=== PATIENT | male | born 1960 | race Hispanic/Latino ===

== ENCOUNTER 2018-01-19 22:31 | Emergency (ER) | payer BC, OTHER ==
[2018-01-19] MEDS ORDERED: L.E.T. GEL 4%/0.5%/0.18% 3ML 3 ML/SYR SYG TP ONE (22:54)
[2018-01-19] MEDS ORDERED: DEXTROSE 50%-WATER 50 ML DISP.SYRIN IV ONE (22:54)
[2018-01-19] MEDS ORDERED: HYDROCODONE/ACETAMINOPHEN 10/325 MG TAB ONE (22:55)
[2018-01-20] MEDS ORDERED: FLUCONAZOLE 100 MG TAB ONE (00:40)
== END 2018-01-20 00:52 | disposition home or self-care (01) ==
LOC: EDH 22:31
DX: N47.2 Paraphimosis (principal); N48.1 Balanitis; E11.9 Type 2 diabetes mellitus without complications; I10 Essential (primary) hypertension; Z90.49 Acquired absence of other specified parts of digestive tract; Z91.041 Radiographic dye allergy status; Z79.4 Long term (current) use of insulin
CPT/HCPCS: 54450; 99284; J7070

== ENCOUNTER → 2019-04-18 | Outpatient (CLI) | payer BC | END | disposition home or self-care (01) | LOC: RAH 11:20 | PROVIDERS: ATTEND Internal Medicine | DX: M47.816 Spondylosis without myelopathy or radiculopathy, lumbar region (principal) | CPT/HCPCS: 72100 ==

== ENCOUNTER → 2019-06-05 | Outpatient (CLI) | payer BC ==
[2019-06-05 16:24] LABS: CREATININE 1.2 mg/dL (0.5-1.5)
== END | disposition home or self-care (01) ==
LOC: LAB 15:54
PROVIDERS: ATTEND Internal Medicine
DX: K86.89 Other specified diseases of pancreas (principal); I10 Essential (primary) hypertension; E11.9 Type 2 diabetes mellitus without complications; Z90.49 Acquired absence of other specified parts of digestive tract; Z91.041 Radiographic dye allergy status
CPT/HCPCS: 36415; 82565; 84520

== ENCOUNTER → 2019-06-06 | Outpatient (CLI) | payer BC ==
[~2019-06-06] MED LIST: DiphenhydrAMINE HCL 50 MG/ML VIAL ONE; IOHEXOL 350 MG/ML 100ML INFUS..BTL IV ONE; IOHEXOL-350 50ML VIAL IV ONE
--- NOTE | 2019-06-06 13:33 | NUR ---
PT REPORTED ALLERGY TO CONTRAST PRIOR TO CT OF ABDOMEN WITH AND WITHOUT. DR TURCIOS WAS MADE AWARE THAT PT HAS ALLERGY AND PTS PCP DID NOT ORDER ANY PROFILACTIC MEDS TO COVER POSSIBLE ALLERGIC REACTION. RADIOLOGIST DID NOT PROVIDE ORDERS FOR PRE MED AND ADVISED MANAGER OF DIGITAL TO PROCEED WITH ORDERED EXAMS. POST EXAM PT DEVELOPED MULTIPLE HIVES TO FACE NECK AND BACK. PT REPORTED THE HIVES WERE ONLY SLIGHTLY ITCHY AND DID NOT GIVE HIM MUCH DISCOMFORT AT ALL. PT DID NOT HAVE ANY DIFFICULTY BREATHING AND DID NOT FEEL ANY DISCOMFORT IN HIS MOUTH THROAT OR NECK. THIS INFORMATION WAS GIVEN TO , HE ORDERED 25 MG BENADRYL IV X 1 DOSE THAT WAS ADMINISTERED AT 0958. THE PT WAS OBSERVED APPROXIMATELY 35 MORE MIN FOR S/S OF FURTHER REACTION TO THE IV CONTRAST. THE HIVES SUBSIDED AND THERE WAS NO FURTHER ADVERSE REACTION NOTED. THE PATIENT WAS ALLOWED TO GO HOME, WITH HIS DAUGHTER DRIVING HIM, @ 1035.
== END | disposition home or self-care (01) ==
LOC: RAH 10:00
PROVIDERS: ATTEND Internal Medicine
DX: K76.0 Fatty (change of) liver, not elsewhere classified (principal); N20.0 Calculus of kidney
CPT/HCPCS: 74170; J1200; Q9967 ×2

== ENCOUNTER 2019-06-24 07:13 | Day surgery (SDC) | payer BC ==
[~2019-06-24] VITALS: Ht 175.3 cm; Wt 95.3 kg
[~2019-06-24 07:13] MED LIST changes: -DiphenhydrAMINE HCL 50 MG/ML VIAL ONE; -IOHEXOL 350 MG/ML 100ML INFUS..BTL IV ONE; -IOHEXOL-350 50ML VIAL IV ONE; +SODIUM CHLORIDE 0.9% 1000ML 1,000 ML IV ONE
[2019-06-24 08:32] LABS: EOSINOPHILS % (AUTO) 3.1 % (0.0-8.0); HEMATOCRIT 45.6 % (42-54); LYMPHOCYTES % (AUTO) 24.1 % (21.0-51.0); MEAN CORPUSCULAR HEMOGLOBIN 27.3 pg (27.0-33.0); MEAN CORPUSCULAR HGB CONC 33.8 g/dL (32.0-36.0); MEAN CORPUSCULAR VOLUME 80.9 fL (79-99); MONOCYTES % (AUTO) 6.8 % (3.0-13.0); PLATELET COUNT (AUTO) 247 K/uL (130-400); RED BLOOD CELL COUNT(AUTO) 5.63 MIL/uL (4.50-6.20); RED CELL DISTRIBUTION WIDTH 13.9 % (11.0-15.5); WHITE BLOOD COUNT (AUTO) 9.8 K/uL (4.8-10.8)
[2019-06-24 08:40] VITALS: BP 154/82
[2019-06-24 08:40] LABS: INR 0.99 (0.85-1.15); PROTHROMBIN TIME 10.4 SEC (9.6-11.6)
[2019-06-24] MEDS ORDERED: OMEG100014 PO (08:55)
[2019-06-24] MEDS ORDERED: METO100T14 PO (08:55)
[2019-06-24] MEDS ORDERED: INSU200I SQ (08:55)
[2019-06-24] MEDS ORDERED: INSLAN SQ (08:55)
[2019-06-24] MEDS ORDERED: PROPOFOL 10 MG/ML 20ML VIAL IV ONE ×3 (08:55→09:11)
[2019-06-24] MEDS ORDERED: METF500T20 PO (08:55)
[2019-06-24] MEDS ORDERED: LISI40TA4 PO (08:55)
[2019-06-24] MEDS ORDERED: ASPI-555 PO (08:55)
[2019-06-24] MEDS ORDERED: ATOR40TA71 PO (08:55)
[2019-06-24 09:21] VITALS: BP 145/90
[2019-06-24 09:26] VITALS: BP 138/88
[2019-06-24 09:31] VITALS: BP 142/82
[2019-06-24 09:36] VITALS: BP 134/84
== END 2019-06-24 09:56 | disposition home or self-care (01) ==
LOC: DAH 07:13 → ENDO 07:13
PROVIDERS: ATTEND Internal Medicine
DX: R94.5 Abnormal results of liver function studies (principal); K29.50 Unspecified chronic gastritis without bleeding; K86.89 Other specified diseases of pancreas; R93.2 Abnormal findings on diagnostic imaging of liver and biliary tract; R63.4 Abnormal weight loss; E78.5 Hyperlipidemia, unspecified; I10 Essential (primary) hypertension; E11.9 Type 2 diabetes mellitus without complications; K76.0 Fatty (change of) liver, not elsewhere classified; Z86.73 Personal history of transient ischemic attack (TIA), and cerebral infarction without residual deficits; Z86.010 Personal history of colon polyps; Z79.84 Long term (current) use of oral hypoglycemic drugs; Z79.82 Long term (current) use of aspirin; Z79.899 Other long term (current) drug therapy; Z90.49 Acquired absence of other specified parts of digestive tract; Z80.0 Family history of malignant neoplasm of digestive organs
CPT/HCPCS: 36415; 43238; 43239; 82948 ×2; 85025; 85610; A4215 ×2; A4221; A4222; A4223; A4606; A4620; A4663; J2704 ×3; J7030

== ENCOUNTER → 2019-09-13 | Outpatient (CLI) | payer BC ==
[~2019-09-13] MED LIST changes: +ASPI-555 PO; +ATOR40TA71 PO; +INSLAN SQ; +INSU200I SQ; +LISI40TA4 PO; +METF500T20 PO; +METO100T14 PO; +OMEG100014 PO; -SODIUM CHLORIDE 0.9% 1000ML 1,000 ML IV ONE
== END | disposition home or self-care (01) ==
LOC: SHCH 08:46
PROVIDERS: ATTEND Internal Medicine Cardiovascular Disease
DX: I10 Essential (primary) hypertension (principal)
CPT/HCPCS: 93306; 93356

== ENCOUNTER 2020-04-20 06:25 | Day surgery (SDC) | payer BC ==
[2020-04-20] VITALS (7 sets, daily range): BP systolic 74–134; BP diastolic 39–80
[~2020-04-20] VITALS: Ht 175.3 cm; Wt 95.3 kg
[~2020-04-20 06:25] MED LIST changes: +AMLO5TAB9 PO; -ASPI-555 PO; +ASPI-556 PO; +METF-910 PO; -METF500T20 PO; -OMEG100014 PO; +SODIUM CHLORIDE 0.9% 1000ML 1,000 ML IV ONE; +VASEPA PO
[2020-04-20] MEDS ORDERED: PROPOFOL 10 MG/ML 20ML VIAL IV ONE ×2 (07:58→07:59)
[2020-04-20] MEDS ORDERED: MIDAZOLAM HCL 1 MG/ML 2ML VIAL ONE (07:58)
[2020-04-20] MEDS ORDERED: LEVOFLOXACIN 500 MG/D5W 100 ML 100 ML ONE (07:58)
== END 2020-04-20 09:15 | disposition home or self-care (01) ==
LOC: ENDO 06:25 → DAH 06:25 → ENDO 09:15
PROVIDERS: ATTEND Internal Medicine
DX: Z09 Encounter for follow-up examination after completed treatment for conditions other than malignant neoplasm (principal); K86.2 Cyst of pancreas; Z86.010 Personal history of colon polyps; K57.90 Diverticulosis of intestine, part unspecified, without perforation or abscess without bleeding; K29.50 Unspecified chronic gastritis without bleeding; E78.5 Hyperlipidemia, unspecified; I10 Essential (primary) hypertension; E11.9 Type 2 diabetes mellitus without complications; Z86.73 Personal history of transient ischemic attack (TIA), and cerebral infarction without residual deficits; Z90.49 Acquired absence of other specified parts of digestive tract; Z79.84 Long term (current) use of oral hypoglycemic drugs; Z79.82 Long term (current) use of aspirin; Z79.899 Other long term (current) drug therapy
CPT/HCPCS: 43238; 45378; 82948 ×2; 93005; A4215 ×2; A4221; A4222; A4223; A4606; A4620; A4657; A4663; C9803; J1956; J2250; J2704 ×2; J7030; U0003; G0105

== ENCOUNTER 2021-12-03 12:31 | Inpatient (IN) | payer BC, OTHER ==
[~2021-12-03] VITALS: Ht 175.3 cm; Wt 85.3 kg
[~2021-12-03 12:31] MED LIST changes: +AMLO-257 PO; -AMLO5TAB9 PO; -LISI40TA4 PO; +LISI40TA9 PO; -SODIUM CHLORIDE 0.9% 1000ML 1,000 ML IV ONE
[2021-12-03] MEDS ORDERED: FUROSEMIDE 40MG VIAL ONE (12:51)
[2021-12-03] MEDS ORDERED: NITROGLYCERIN 1GM OINT 1 INCH/1GM TD ONE ×2 (12:51→13:00)
[2021-12-03 12:55] LABS: BASOPHILS % (AUTO) 0.3 % (0.0-5.0); EOSINOPHILS % (AUTO) 2.1 % (0.0-8.0); HEMATOCRIT 45.6 % (42-54); LYMPHOCYTES % (AUTO) 14.5 % (21.0-51.0); MEAN CORPUSCULAR HEMOGLOBIN 25.5 pg (27.0-33.0); MEAN CORPUSCULAR HGB CONC 31.8 g/dL (32.0-36.0); MEAN CORPUSCULAR VOLUME 80.1 fL (79-99); NEUTROPHILS % (AUTO) 74.7 % (40.0-77.0); PLATELET COUNT (AUTO) 349 K/uL (130-400); RED BLOOD CELL COUNT(AUTO) 5.69 MIL/uL (4.50-6.20); RED CELL DISTRIBUTION WIDTH 12.3 % (11.0-15.5); WHITE BLOOD COUNT (AUTO) 10.3 K/uL (4.8-10.8)
[2021-12-03 13:00] LABS: CREATININE 1.1 mg/dL (0.5-1.5); POTASSIUM 4.5 mmol/L (3.5-5.1)
[2021-12-03] MEDS ORDERED: FUROSEMIDE 40MG VIAL IV ONE (13:00)
[2021-12-03 13:05] LABS: ALBUMIN 2.6 g/dL (3.5-5.0); BILIRUBIN,TOTAL 1.6 mg/dL (0.2-1.0); MAGNESIUM 1.7 mg/dL (1.80-2.40); TOTAL PROTEIN, SERUM 7.4 g/dL (6.0-8.3)
[2021-12-03 13:24] LABS: INFLUENZA TYPE A NEGATIVE FOR TYPE A (NEG); INFLUENZA TYPE B NEGATIVE FOR TYPE B (NEG)
[2021-12-03] MEDS ORDERED: CEFTRIAXONE 1G VIAL IVP ONE (13:30)
[2021-12-03] MEDS ORDERED: AZITHROMYCIN 250 MG TABLET PO ONE (13:30)
[2021-12-03] MEDS ORDERED: INSULIN HUMULIN R 100 UNIT/ML 3ML IV ONE (13:30)
[2021-12-03 13:44] LABS: APPEARANCE,URINE Clear (CLEAR); BILIRUBIN,URINE Negative (NEGATIVE); COLOR,URINE Yellow (YELLOW); GLUCOSE, URINE (UA) >=1000 mg/dL (NEGATIVE); KETONES,URINE Trace mg/dL (NEGATIVE); LEUKOCYTE ESTERASE ,URINE Negative (NEGATIVE); NITRATE,URINE Negative (NEGATIVE); OCCULT BLOOD,URINE Negative (NEGATIVE); PH,URINE 6.5 (5.0-8.0); PROTEIN,URINE Negative (NEGATIVE); UROBILINOGEN,URINE 0.2 mg/dL (0.2-1.0)
[2021-12-03 13:52] LABS: AMPHET/METH SCREEN,URINE NEGATIVE (NEGATIVE); BARBITURATE SCREEN, URINE NEGATIVE (NEGATIVE); BENZODIAZEPINES SCREEN,URINE NEGATIVE (NEGATIVE); CANNABINOID SCREEN,URINE NEGATIVE (NEGATIVE); COCAINE SCREEN,URINE NEGATIVE (NEGATIVE); OPIATE SCREEN,URINE NEGATIVE (NEGATIVE); PHENCYCLIDINE SCREEN,URINE NEGATIVE (NEGATIVE)
[2021-12-03 14:07] LABS: BACTERIA,URINE Few /HPF (None Seen); RBC,URINE 0-1 /HPF (0-1); SQUAMOUS EPITHELIAL CELL,UR 0-2 /HPF (0-2); WBC,URINE 0-1 /HPF (0-1)
[2021-12-03] MEDS: ENOXAPARIN SODIUM 30 MG/0.3 ML SQ SCH (14:49)
[2021-12-03] MEDS ORDERED: PHARMACY COMMUNICATION MISC SCH (15:00)
[2021-12-03] MEDS ORDERED: ONDANSETRON 4MG TABLET PO PRN (15:00)
[2021-12-03] MEDS ORDERED: ACETAMINOPHEN 325 MG TAB PO PRN (15:00)
[2021-12-03] MEDS ORDERED: FISH1CAP27 PO (17:20)
[2021-12-03] MEDS: INSULIN R PO SS1 SQ SCH ×2 (17:39→21:13)
[2021-12-03 17:50] VITALS: BP 132/82
[2021-12-03 19:47] VITALS: BP 126/83
[2021-12-03] MEDS ORDERED: IPRATROPIUM/ALBUTEROL SULFATE 3 ML SOLUTION IH ONE (20:00)
[2021-12-03] MEDS: DOXYCYCLINE HYCLATE 100 MG TABLET PO SCH (21:12)
[2021-12-03] MEDS: CEFEPIME HCL 1 GM VIAL IVP SCH (21:12)
[2021-12-03 23:15] VITALS: BP 114/76
[2021-12-04 04:15] VITALS: BP 118/77
[2021-12-04] MEDS: CEFEPIME HCL 1 GM VIAL IVP SCH ×3 (05:07→20:37)
[2021-12-04] MEDS: INSULIN R PO SS1 SQ SCH ×4 (06:38→20:39)
[2021-12-04 08:11] VITALS: BP 126/84
[2021-12-04] MEDS: ENOXAPARIN SODIUM 30 MG/0.3 ML SQ SCH (09:50)
[2021-12-04] MEDS: DOXYCYCLINE HYCLATE 100 MG TABLET PO SCH ×2 (09:50→20:37)
[2021-12-04] MEDS: FUROSEMIDE 40 MG TABLET PO SCH (09:50)
[2021-12-04] MEDS: GUAIFENESIN-DM 200/20 MG 10 ML PO PRN ×2 (09:50→18:39)
[2021-12-04 12:02] VITALS: BP 129/85
[2021-12-04] MEDS: MAGNESIUM 2GM PREMIX 50ML 50 ML IV PRN (13:15)
[2021-12-04 18:06] VITALS: BP 117/79
[2021-12-04] MEDS: IPRATROPIUM/ALBUTEROL SULFATE 3 ML SOLUTION IH PRN (18:34)
[2021-12-04 20:12] VITALS: BP 103/61
[2021-12-04 23:56] VITALS: BP 115/77
[2021-12-05] VITALS: BP 128/78
[2021-12-05 03:14] VITALS: BP 120/78
[2021-12-05 04:59] LABS: HEMATOCRIT 42.6 % (42-54); MEAN CORPUSCULAR HEMOGLOBIN 25.5 pg (27.0-33.0); MEAN CORPUSCULAR HGB CONC 31.7 g/dL (32.0-36.0); MEAN CORPUSCULAR VOLUME 80.4 fL (79-99); RED BLOOD CELL COUNT(AUTO) 5.3 MIL/uL (4.50-6.20); RED CELL DISTRIBUTION WIDTH 12.5 % (11.0-15.5); WHITE BLOOD COUNT (AUTO) 11.1 K/uL (4.8-10.8)
[2021-12-05] MEDS: CEFEPIME HCL 1 GM VIAL IVP SCH ×3 (05:03→20:45)
[2021-12-05 05:15] LABS: MAGNESIUM 1.8 mg/dL (1.80-2.40)
[2021-12-05] MEDS: INSULIN R PO SS1 SQ SCH ×4 (07:40→20:50)
[2021-12-05 08:00] VITALS: BP 129/87
[2021-12-05] MEDS: DOXYCYCLINE HYCLATE 100 MG TABLET PO SCH ×2 (08:12→20:45)
[2021-12-05] MEDS: FUROSEMIDE 40 MG TABLET PO SCH (08:12)
[2021-12-05] MEDS: ENOXAPARIN SODIUM 30 MG/0.3 ML SQ SCH (08:15)
[2021-12-05] MEDS: GUAIFENESIN-DM 200/20 MG 10 ML PO PRN ×2 (08:18→14:24)
[2021-12-05 12:00] VITALS: BP 133/72
[2021-12-05 16:00] VITALS: BP 135/88
[2021-12-05 20:00] VITALS: BP 136/88
[2021-12-05] MEDS ORDERED: FUROSEMIDE 40MG VIAL IV STA (21:15)
[2021-12-05] MEDS: IPRATROPIUM/ALBUTEROL SULFATE 3 ML SOLUTION IH PRN (21:18)
[2021-12-05] MEDS ORDERED: SOLU-MEDROL 40MG VIAL IVP SCH (21:30)
[2021-12-05 21:45] LABS: ABG BASE EXCESS 2.4 mmol/L (-2.0-3.0); ABG HCO3 25.6 mmol/L (21.0-28.0); ABG OXYGEN SATURATION 95.2 % (95.0-99.0); ABG PCO2 36 mmHg (35-48)
[2021-12-06] VITALS (7 sets, daily range): BP systolic 125–139; BP diastolic 68–98
[2021-12-06] MEDS ORDERED: IPRATROPIUM/ALBUTEROL SULFATE 3 ML SOLUTION IH SCH ×2
[2021-12-06 05:02] LABS: HEMATOCRIT 41.7 % (42-54); MEAN CORPUSCULAR HEMOGLOBIN 25.7 pg (27.0-33.0); MEAN CORPUSCULAR HGB CONC 32.1 g/dL (32.0-36.0); MEAN CORPUSCULAR VOLUME 79.9 fL (79-99); RED BLOOD CELL COUNT(AUTO) 5.22 MIL/uL (4.50-6.20); RED CELL DISTRIBUTION WIDTH 12.4 % (11.0-15.5); WHITE BLOOD COUNT (AUTO) 10.5 K/uL (4.8-10.8)
[2021-12-06 05:11] LABS: CREATININE 0.9 mg/dL (0.5-1.5); MAGNESIUM 1.8 mg/dL (1.80-2.40); POTASSIUM 3.7 mmol/L (3.5-5.1)
[2021-12-06] MEDS: CEFEPIME HCL 1 GM VIAL IVP SCH ×3 (05:26→20:56)
[2021-12-06] MEDS: INSULIN GLARGINE 100 UNITS/ML 10 ML VIAL SQ SCH (06:10)
[2021-12-06] MEDS: INSULIN R PO SS1 SQ SCH ×4 (06:10→21:06)
[2021-12-06] MEDS: MAGNESIUM 2GM PREMIX 50ML 50 ML IV PRN (06:12)
[2021-12-06] MEDS: SOLU-MEDROL 40MG VIAL IVP SCH ×4 (06:13→20:56)
[2021-12-06] MEDS: IPRATROPIUM/ALBUTEROL SULFATE 3 ML SOLUTION IH SCH ×5 (06:24→22:06)
[2021-12-06] MEDS: DOXYCYCLINE HYCLATE 100 MG TABLET PO SCH ×2 (09:05→20:56)
[2021-12-06] MEDS: FUROSEMIDE 40 MG TABLET PO SCH (09:06)
[2021-12-06] MEDS: ENOXAPARIN SODIUM 30 MG/0.3 ML SQ SCH (09:06)
[2021-12-06] MEDS: FUROSEMIDE 40MG VIAL IV SCH (15:41)
[2021-12-07] MEDS: IPRATROPIUM/ALBUTEROL SULFATE 3 ML SOLUTION IH SCH ×4 (01:34→23:35)
[2021-12-07] MEDS: FUROSEMIDE 40MG VIAL IV SCH ×2 (02:56→14:10)
[2021-12-07 04:32] VITALS: BP 132/88
[2021-12-07] MEDS: CEFEPIME HCL 1 GM VIAL IVP SCH ×3 (04:57→21:27)
[2021-12-07 05:52] LABS: BASOPHILS % (AUTO) 0.1 % (0.0-5.0); HEMATOCRIT 43.9 % (42-54); LYMPHOCYTES % (AUTO) 5.2 % (21.0-51.0); MEAN CORPUSCULAR HEMOGLOBIN 26.1 pg (27.0-33.0); MEAN CORPUSCULAR HGB CONC 32.1 g/dL (32.0-36.0); MEAN CORPUSCULAR VOLUME 81.1 fL (79-99); MONOCYTES % (AUTO) 4.5 % (3.0-13.0); NEUTROPHILS % (AUTO) 89.6 % (40.0-77.0); PLATELET COUNT (AUTO) 485 K/uL (130-400); RED BLOOD CELL COUNT(AUTO) 5.41 MIL/uL (4.50-6.20); RED CELL DISTRIBUTION WIDTH 12.7 % (11.0-15.5); WHITE BLOOD COUNT (AUTO) 16.4 K/uL (4.8-10.8)
[2021-12-07] MEDS: INSULIN GLARGINE 100 UNITS/ML 10 ML VIAL SQ SCH (06:03)
[2021-12-07] MEDS: INSULIN R PO SS1 SQ SCH ×4 (06:09→21:28)
[2021-12-07 06:19] LABS: B-TYPE NATRIURETIC PEPTIDE 850 pg/mL (0-100)
[2021-12-07 06:49] LABS: ALBUMIN 2.6 g/dL (3.5-5.0); CREATININE 1.2 mg/dL (0.5-1.5); PHOSPHORUS 4.5 mg/dL (2.5-4.9); POTASSIUM 4.8 mmol/L (3.5-5.1)
[2021-12-07 06:52] LABS: BILIRUBIN,TOTAL 0.7 mg/dL (0.2-1.0); MAGNESIUM 1.9 mg/dL (1.80-2.40); TOTAL PROTEIN, SERUM 7.5 g/dL (6.0-8.3)
[2021-12-07] MEDS: SOLU-MEDROL 40MG VIAL IVP SCH ×3 (07:25→21:27)
[2021-12-07] MEDS: DOXYCYCLINE HYCLATE 100 MG TABLET PO SCH ×2 (07:25→21:27)
[2021-12-07] MEDS: ENOXAPARIN SODIUM 30 MG/0.3 ML SQ SCH (07:26)
[2021-12-07 08:19] VITALS: BP 130/76
[2021-12-07 17:40] VITALS: BP 122/86
[2021-12-07 20:13] VITALS: BP 127/83
[2021-12-07 23:43] VITALS: BP 124/79
[2021-12-08] MEDS: FUROSEMIDE 40MG VIAL IV SCH (03:57)
[2021-12-08] MEDS: CEFEPIME HCL 1 GM VIAL IVP SCH ×3 (04:00→20:32)
[2021-12-08 04:50] VITALS: BP 119/80
[2021-12-08 05:24] LABS: BASOPHILS % (AUTO) 0.1 % (0.0-5.0); HEMATOCRIT 44.3 % (42-54); LYMPHOCYTES % (AUTO) 5.9 % (21.0-51.0); MEAN CORPUSCULAR HEMOGLOBIN 25.5 pg (27.0-33.0); MEAN CORPUSCULAR HGB CONC 31.2 g/dL (32.0-36.0); MEAN CORPUSCULAR VOLUME 81.7 fL (79-99); MONOCYTES % (AUTO) 4.3 % (3.0-13.0); NEUTROPHILS % (AUTO) 88.4 % (40.0-77.0); PLATELET COUNT (AUTO) 502 K/uL (130-400); RED BLOOD CELL COUNT(AUTO) 5.42 MIL/uL (4.50-6.20); RED CELL DISTRIBUTION WIDTH 12.8 % (11.0-15.5); WHITE BLOOD COUNT (AUTO) 18.7 K/uL (4.8-10.8)
[2021-12-08 05:37] LABS: ALBUMIN 2.7 g/dL (3.5-5.0); BILIRUBIN,TOTAL 0.6 mg/dL (0.2-1.0); CREATININE 1.1 mg/dL (0.5-1.5); MAGNESIUM 1.9 mg/dL (1.80-2.40); PHOSPHORUS 4.6 mg/dL (2.5-4.9); POTASSIUM 3.6 mmol/L (3.5-5.1); TOTAL PROTEIN, SERUM 7.6 g/dL (6.0-8.3)
[2021-12-08] MEDS: INSULIN HUMULIN R 100 UNIT/ML 3ML SQ SCH ×4 (06:24→20:33)
[2021-12-08] MEDS: IPRATROPIUM/ALBUTEROL SULFATE 3 ML SOLUTION IH SCH ×4 (06:35→23:47)
[2021-12-08] MEDS: PREDNISONE 20 MG TABLET PO SCH (07:40)
[2021-12-08] MEDS: DOXYCYCLINE HYCLATE 100 MG TABLET PO SCH ×2 (07:40→20:32)
[2021-12-08] MEDS: ENOXAPARIN SODIUM 30 MG/0.3 ML SQ SCH (07:41)
[2021-12-08] MEDS: INSULIN GLARGINE 100 UNITS/ML 10 ML VIAL SQ SCH ×2 (07:46→20:34)
[2021-12-08 08:31] VITALS: BP 128/65
[2021-12-08 12:05] VITALS: BP 121/75
[2021-12-08 16:37] VITALS: BP 140/92
[2021-12-08] MEDS: MAGNESIUM 2GM PREMIX 50ML 50 ML IV PRN (18:32)
[2021-12-08] MEDS ORDERED: SACUBITRIL/VALSARTAN 1 EACH TABLET PO SCH (19:00)
[2021-12-08] MEDS: METOPROLOL SUCCINATE 50 MG TAB.SR.24H PO SCH (19:07)
[2021-12-08] MEDS: PANTOPRAZOLE 40 MG TAB DR PO SCH (19:07)
[2021-12-08] MEDS: ASPIRIN 81 MG EC TAB PO SCH (19:07)
[2021-12-08 20:38] VITALS: BP 148/96
[2021-12-09 00:41] VITALS: BP 111/76
[2021-12-09 03:52] VITALS: BP 138/91
[2021-12-09 05:18] LABS: BASOPHILS % (AUTO) 0.1 % (0.0-5.0); EOSINOPHILS % (AUTO) 1.4 % (0.0-8.0); HEMATOCRIT 41.8 % (42-54); LYMPHOCYTES % (AUTO) 14.2 % (21.0-51.0); MEAN CORPUSCULAR HEMOGLOBIN 25.5 pg (27.0-33.0); MEAN CORPUSCULAR HGB CONC 31.8 g/dL (32.0-36.0); MEAN CORPUSCULAR VOLUME 80.2 fL (79-99); MONOCYTES % (AUTO) 8.6 % (3.0-13.0); NEUTROPHILS % (AUTO) 74.6 % (40.0-77.0); PLATELET COUNT (AUTO) 456 K/uL (130-400); RED BLOOD CELL COUNT(AUTO) 5.21 MIL/uL (4.50-6.20); RED CELL DISTRIBUTION WIDTH 12.9 % (11.0-15.5); WHITE BLOOD COUNT (AUTO) 15.6 K/uL (4.8-10.8)
[2021-12-09] MEDS: CEFEPIME HCL 1 GM VIAL IVP SCH ×2 (05:33→13:44)
[2021-12-09 05:44] LABS: ALBUMIN 2.3 g/dL (3.5-5.0); BILIRUBIN,TOTAL 0.7 mg/dL (0.2-1.0); CREATININE 0.9 mg/dL (0.5-1.5); MAGNESIUM 1.9 mg/dL (1.80-2.40); PHOSPHORUS 3.9 mg/dL (2.5-4.9); POTASSIUM 3.3 mmol/L (3.5-5.1); TOTAL PROTEIN, SERUM 6.6 g/dL (6.0-8.3)
[2021-12-09] MEDS: IPRATROPIUM/ALBUTEROL SULFATE 3 ML SOLUTION IH SCH ×2 (06:36→10:58)
[2021-12-09 07:04] VITALS: BP 110/78
[2021-12-09] MEDS ORDERED: SACU1TAB PO (08:16)
[2021-12-09] MEDS ORDERED: METO50TA9 PO (08:16)
[2021-12-09] MEDS ORDERED: FURO40TA7 PO (08:16)
[2021-12-09] MEDS: ASPIRIN 81 MG EC TAB PO SCH (08:43)
[2021-12-09] MEDS: DOXYCYCLINE HYCLATE 100 MG TABLET PO SCH (08:43)
[2021-12-09] MEDS: PANTOPRAZOLE 40 MG TAB DR PO SCH (08:43)
[2021-12-09] MEDS: ENOXAPARIN SODIUM 30 MG/0.3 ML SQ SCH (08:44)
[2021-12-09] MEDS: PREDNISONE 20 MG TABLET PO SCH (08:44)
[2021-12-09] MEDS: METOPROLOL SUCCINATE 50 MG TAB.SR.24H PO SCH (08:44)
[2021-12-09] MEDS: INSULIN HUMULIN R 100 UNIT/ML 3ML SQ SCH ×2 (08:49→12:32)
[2021-12-09] MEDS ORDERED: FUROSEMIDE 40 MG TABLET PO SCH ×2 (09:00)
[2021-12-09] MEDS ORDERED: SACUBITRIL/VALSARTAN 1 EACH TABLET PO SCH (09:00)
[2021-12-09] MEDS ORDERED: ATORVASTATIN 20 MG TABLET PO SCH (09:00)
[2021-12-09] MEDS: INSULIN GLARGINE 100 UNITS/ML 10 ML VIAL SQ SCH (09:37)
[2021-12-09 12:00] VITALS: BP 106/75
== END 2021-12-09 16:30 | disposition home or self-care (01) | DRG 177 ==
LOC: EDH 12:31 → 3BH 12:32 → OBSVTOIN 12:32 → EDH 15:35 → 3BH 12-05 02:50
PROVIDERS: ADMIT Internal Medicine Infectious Disease; ATTEND Internal Medicine Infectious Disease
DX: J15.6 Pneumonia due to other Gram-negative bacteria (principal); J96.21 Acute and chronic respiratory failure with hypoxia; I50.23 Acute on chronic systolic (congestive) heart failure; I11.0 Hypertensive heart disease with heart failure; E11.65 Type 2 diabetes mellitus with hyperglycemia; I25.10 Atherosclerotic heart disease of native coronary artery without angina pectoris; D72.810 Lymphocytopenia; E78.5 Hyperlipidemia, unspecified; E78.00 Pure hypercholesterolemia, unspecified; E66.9 Obesity, unspecified; D75.839 Thrombocytosis, unspecified; I25.5 Ischemic cardiomyopathy; Z91.19 Patient's noncompliance with other medical treatment and regimen; Z90.49 Acquired absence of other specified parts of digestive tract; Z68.28 Body mass index [BMI] 28.0-28.9, adult; Z91.041 Radiographic dye allergy status; I25.2 Old myocardial infarction; Z86.73 Personal history of transient ischemic attack (TIA), and cerebral infarction without residual deficits; Z79.899 Other long term (current) drug therapy
CPT/HCPCS: 36415; 36600; 71045; 71046; 78582; 80048; 80053; 80305; 81001; 82435; 82550; 82803; 82947; 82948; 83605; 83735; 83880; 84100; 84132; 84145; 84295; 84484; 85018; 85025; 85027; 85378; 87040; 87071; 87205; 87635; 87804; 93005; 93306; 93970; 94640; 94664; A9540; A9558; C9803; G0378; J0692; J0696; J1650; J1815; J1940; J2920; J3475